=== PATIENT | male | born 1985 | race Hispanic/Latino ===

== ENCOUNTER 2018-05-31 22:33 | Emergency (ER) | payer SELFPAY ==
[2018-05-31] MEDS ORDERED: NA CHLORIDE 0.9% 1,000 ML ONE (23:57)
[2018-05-31] MEDS ORDERED: THIAMINE 200 MG/2 ML INJ ONE (23:58)
[2018-06-01] MEDS ORDERED: FOLIC ACID 5 MG/ML VIAL ONE
[2018-06-01 00:02] LABS: Absolute Lymphocytes (CBC) 2.5 K/uL (0.7-4.9); Absolute Monocytes 0.9 K/uL (0.1-1.3); Absolute Neutrophil 6.6 K/uL (1.8-8.0); Basophils % 0.7 % (0-1.3); Hematocrit 46.4 % (39.6-49.0); Lymphocytes % 24.7 % (15.3-44.8); MPV 7.4 fL (7.6-11.3); Monocytes % 8.9 % (3.3-12.3); RBC Red Blood Cell Count 5.12 M/uL (4.33-5.43)
[2018-06-01] MEDS ORDERED: MULTIVITAMINS 10 ML VIAL (INJ) IV ONE (00:03)
[2018-06-01 00:16] LABS: ALT/SGPT 41 U/L (12-78); AST/SGOT 16 U/L (15-37); Albumin 3.9 g/dL (3.4-5.0); Alkaline Phosphatase 72 U/L (45-117); BUN Blood Urea Nitrogen 11 mg/dL (7-18); Bicarbonate 28 mmol/L (21-32); Bilirubin Direct 0.2 mg/dL (0-0.2); Bilirubin Total 0.6 mg/dL (0.2-1.0); Glucose Level 117 mg/dL (74-106); Lipase 334 U/L (73-393); Potassium 3.4 mmol/L (3.5-5.1); Protein, Total 7.9 g/dL (6.4-8.2); Sodium Level 140 mmol/L (136-145)
[2018-06-01] MEDS ORDERED: POTASSIUM CL SA 10 MEQ TAB PO ONE (00:51)
--- NOTE | 2018-06-01 01:28 | EDPHYS ---
Physician Documentation [facility] Name: Phuc Pacheco Age: 33 yrs Sex: Male : 1985 Arrival Date: 05/31/2018 Time: 22:41 Bed 24 Private MD: None, None ED Physician Francesco Bhandari HPI: 05/31 23:45 This 33 yrs old Male presents to ER via Ambulatory with complaints of Headache.pkl 23:45 patient admits to drinking a lot of alcohol the past 2 days. Now complaining of pkl headache, nervous and unable to sleep.. Onset: The symptoms/episode began/occurred today. Historical: - Allergies: 22:49 No Known Allergies; lp1 - Home Meds: 22:49 None [Active]; lp1 - PMHx: 22:49 None; lp1 - PSHx: 22:49 None; lp1 - Immunization history:: Adult Immunizations up to date. - Social history:: Smoking status: Patient/guardian denies using tobacco. - Ebola Screening: : No symptoms or risks identified at this time. ROS: 23:45 Eyes: Negative for injury, pain, redness, and discharge, ENT: Negative for injury, pkl pain, and discharge, Neck: Negative for injury, pain, and swelling, Cardiovascular: Negative for chest pain, palpitations, and edema, Respiratory: Negative for shortness of breath, cough, wheezing, and pleuritic chest pain, Abdomen/GI: Negative for abdominal pain, nausea, vomiting, diarrhea, and constipation, Back: Negative for injury and pain, : Negative for injury, bleeding, discharge, and swelling, MS/Extremity: Negative for injury and deformity, Skin: Negative for injury, rash, and discoloration. 23:45 Neuro: Positive for headache. 23:45 Psych: Positive for anxiety. Exam: 23:45 Head/Face: Normocephalic, atraumatic. Eyes: Pupils equal round and reactive to light, pkl extra-ocular motions intact. Lids and lashes normal. Conjunctiva and sclera are non-icteric and not injected. Cornea within normal limits. Periorbital areas with no swelling, redness, or edema. ENT: Nares patent. No nasal discharge, no septal abnormalities noted. Tympanic membranes are normal and external auditory canals are clear. Oropharynx with no redness, swelling, or masses, exudates, or evidence of obstruction, uvula midline. Mucous membranes moist. Neck: Trachea midline, no thyromegaly or masses palpated, and no cervical lymphadenopathy. Supple, full range of motion without nuchal rigidity, or vertebral point tenderness. No Meningismus. Chest/axilla: Normal chest wall appearance and motion. Nontender with no deformity. No lesions are appreciated. Cardiovascular: Regular rate and rhythm with a normal S1 and S2. No gallops, murmurs, or rubs. Normal PMI, no JVD. No pulse deficits. Respiratory: Lungs have equal breath sounds bilaterally, clear to auscultation and percussion. No rales, rhonchi or wheezes noted. No increased work of breathing, no retractions or nasal flaring. Abdomen/GI: Soft, non-tender, with normal bowel sounds. No distension or tympany. No guarding or rebound. No evidence of tenderness throughout. Back: No spinal tenderness. No costovertebral tenderness. Full range of motion. Skin: Warm, dry with normal turgor. Normal color with no rashes, no lesions, and no evidence of cellulitis. MS/ Extremity: Pulses equal, no cyanosis. Neurovascular intact. Full, normal range of motion. Neuro: Awake and alert, GCS 15, oriented to person, place, time, and situation. Cranial nerves II-XII grossly intact. Motor strength 5/5 in all extremities. Sensory grossly intact. Cerebellar exam normal. Normal gait. 23:45 Psych: Behavior/mood is anxious, Patient has no thoughts/intents to harm self or others. Vital Signs: 22:49 BP 146 / 98; Pulse 104; Resp 16; Temp 98.5(TE); Pulse Ox 99% on R/A; Weight 81.65 kg; lp1 Height 5 ft. 6 in. (167.64 cm); Pain 11/02; 06/01 00:45 BP 139 / 107; Pulse 73; Resp 16; Pulse Ox 100% on R/A; Pain 2/10; ed1 01:40 BP 138 / 97; Pulse 91; Resp 17; Pulse Ox 100% on R/A; Pain 2/10; ed1 05/31 22:49 Body Mass Index 29.05 (81.65 kg, 167.64 cm) lp1 MDM: 05/31 23:29 Patient medically screened. pkl 06/01 01:27 Data reviewed: vital signs, nurses notes, lab test result(s). pkl 05/31 23:39 Order name: Basic Metabolic Panel; Complete Time: 00:38 pkl 05/31 23:39 Order name: CBC with Diff; Complete Time: 00:15 pkl 05/31 23:39 Order name: Creatinine for Radiology; Complete Time: 00:15 pkl 05/31 23:39 Order name: Hepatic Function; Complete Time: 00:38 pkl 05/31 23:39 Order name: Lipase; Complete Time: 00:38 pkl 05/31 23:49 Order name: ETOH Level; Complete Time: 01:27 pkl 05/31 23:39 Order name: IV Saline Lock; Complete Time: 23:53 pkl 05/31 23:39 Order name: Labs collected and sent; Complete Time: 23:53 pkl Administered Medications: 05/31 23:59 Drug: Banana Bag - (NS 0.9% 1000 ml, foLIC Acid 1 mg, Thiamine 100 mg, Multivitamin 1 tl3 amp) Route: IV; Rate: calculated rate; Site: right antecubital; 06/01 01:42 Follow up: Response: No adverse reaction; IV Status: Completed infusion; IV Intake: ed1 1000ml 00:46 Drug: K-Dur 20 mEq Route: PO; ed1 01:42 Follow up: Response: No adverse reaction ed1 Disposition: 06/01/18 01:28 Discharged to Home. Impression: Anxiety disorder. Alcohol abuse. - Condition is Stable. - Prescriptions for Ativan 1 mg Oral Tablet - take 1 tablet by ORAL route 2 times per day As needed; 10 tablet. - Medication Reconciliation Form, Thank You Letter, Antibiotic Education, Prescription Opioid Use, Work release form form. - Follow up: Private Physician; When: 2 - 3 days; Reason: Re-evaluation by your physician. - Problem is new. - Symptoms have improved. Signatures: Dispatcher [employer] EDMS Francesco Bhandari MD MD pkHarini Looney, HORSE RACING ANALYST HORSE RACING ANALYST ed1 Belen Phan, RN RN lp1 Estrella Graves, RN RN tl3 Corrections: (The following items were deleted from the chart) 01:24 05/31 23:50 URINE DRUG SCREEN+CHEM UR.LAB.BRZ ordered. EDMS EDMS 01/07 01:42 01:28 06/01/2018 01:28 Discharged to Home. Impression: Anxiety disorder. Alcohol abuse. ed1 Condition is Stable. Forms are Medication Reconciliation Form, Thank You Letter, Antibiotic Education, Prescription Opioid Use. Follow up: Private Physician; When: 2 - 3 days; Reason: Re-evaluation by your physician. Problem is new. Symptoms have improved. pkl
--- NOTE | 2018-06-01 01:28 | ER ---
Nurse's Notes [facility] Name: Phuc Pacheco Age: 33 yrs Sex: Male : 1985 Arrival Date: 05/31/2018 Time: 22:41 Bed 24 Private MD: None, None Diagnosis: Anxiety disorder. Alcohol abuse Presentation: 05/31 22:46 Presenting complaint: Child states: He has been feeling very nervous, shaky, headache; lp1 States going to [place] and drank a lot of alcohol, drove back from [place] and arrived today but has been tired so he drank 2 coffees and 4 [employer] drinks in the last 2 days. Transition of care: patient was not received from another setting of care. Onset of symptoms was May 31, 2018. Risk Assessment: Do you want to hurt yourself or someone else? Patient reports no desire to harm self or others. Initial Sepsis Screen: Does the patient meet any 2 criteria? No. Patient's initial sepsis screen is negative. Does the patient have a suspected source of infection? No. Patient's initial sepsis screen is negative. Care prior to arrival: None. 22:46 Method Of Arrival: Ambulatory lp1 22:46 Acuity: JESSE 3 lp1 Historical: - Allergies: 22:49 No Known Allergies; lp1 - Home Meds: 22:49 None [Active]; lp1 - PMHx: 22:49 None; lp1 - PSHx: 22:49 None; lp1 - Immunization history:: Adult Immunizations up to date. - Social history:: Smoking status: Patient/guardian denies using tobacco. - Ebola Screening: : No symptoms or risks identified at this time. Screenin:49 Abuse screen: Denies threats or abuse. Denies injuries from another. Nutritional lp1 screening: No deficits noted. Tuberculosis screening: No symptoms or risk factors identified. Fall Risk None identified. Assessment: 23:14 General: Appears in no apparent distress. Behavior is calm, cooperative. Pain: ed1 Complains of pain in head Pain does not radiate. Pain currently is 6 out of 10 on a pain scale. Quality of pain is described as aching, Pain began today. Neuro: Level of Consciousness is awake, alert, obeys commands, Oriented to person, place, time, situation, Reports headache in entire parietal area, frontal area. Cardiovascular: Denies chest pain, Heart tones S1 S2 present Capillary refill < 3 seconds in bilateral fingers Clubbing of nail beds is absent JVD is absent Patient's skin is warm and dry. Respiratory: Airway is patent Respiratory effort is even, unlabored, Respiratory pattern is regular, symmetrical, Breath sounds are clear bilaterally. Denies cough, shortness of breath. GI: Abdomen is non-distended, Bowel sounds present X 4 quads. Abd is soft and non tender X 4 quads. Patient currently denies diarrhea, nausea, vomiting. : No signs and/or symptoms were reported regarding the genitourinary system. EENT: No signs and/or symptoms were reported regarding the EENT system. Derm: Skin is intact, is healthy with good turgor, Skin is dry, Skin is normal, Skin temperature is warm. Musculoskeletal: Circulation, motion, and sensation intact. Range of motion: intact in all extremities. 06/01 00:45 Reassessment: Patient appears in no apparent distress at this time. Patient and/or ed1 family updated on plan of care and expected duration. Pain level reassessed. Patient is alert, oriented x 3, equal unlabored respirations, skin warm/dry/pink. Patient states feeling better. Patient states symptoms have improved. 01:40 Reassessment: Patient appears in no apparent distress at this time. Patient and/or ed1 family updated on plan of care and expected duration. Pain level reassessed. Patient is alert, oriented x 3, equal unlabored respirations, skin warm/dry/pink. Patient states feeling better. Patient states symptoms have improved. Vital Signs: 05/31 22:49 BP 146 / 98; Pulse 104; Resp 16; Temp 98.5(TE); Pulse Ox 99% on R/A; Weight 81.65 kg; lp1 Height 5 ft. 6 in. (167.64 cm); Pain 6/; 06/01 00:45 BP 139 / 107; Pulse 73; Resp 16; Pulse Ox 100% on R/A; Pain 2/10; ed1 01:40 BP 138 / 97; Pulse 91; Resp 17; Pulse Ox 100% on R/A; Pain 2/10; ed1 05/31 22:49 Body Mass Index 29.05 (81.65 kg, 167.64 cm) lp1 ED Course: 05/31 22:41 Patient arrived in ED. mr 22:41 None, None is Private Physician. mr 22:48 Triage completed. lp1 22:49 Arm band placed on left wrist. lp1 23:13 Harini Sahu LVN is Primary Nurse. ed1 23:14 Patient has correct armband on for positive identification. Bed in low position. Call ed1 light in reach. Adult w/ patient. 23:29 Francesco Bhandari MD is Attending Physician. pkl 23:54 Inserted saline lock: 20 gauge in right antecubital area, using aseptic technique. pa Blood collected. 01 01:40 No provider procedures requiring assistance completed. IV discontinued, intact, ed1 bleeding controlled, No redness/swelling at site. Pressure dressing applied. Administered Medications: 05/31 23:59 Drug: Banana Bag - (NS 0.9% 1000 ml, foLIC Acid 1 mg, Thiamine 100 mg, Multivitamin 1 tl3 amp) Route: IV; Rate: calculated rate; Site: right antecubital; 06/01 01:42 Follow up: Response: No adverse reaction; IV Status: Completed infusion; IV Intake: ed1 1000ml 00:46 Drug: K-Dur 20 mEq Route: PO; ed1 01:42 Follow up: Response: No adverse reaction ed1 Intake: 01:42 IV: 1000ml; Total: 1000ml. ed1 Outcome: 01:28 Discharge ordered by . pkl 01:40 Discharged to home ambulatory, with family. ed1 01:40 Condition: good 01:40 Discharge instructions given to patient, family, Instructed on discharge instructions, follow up and referral plans. medication usage, Demonstrated understanding of instructions, follow-up care, medications, Prescriptions given X 1. 01:42 Patient left the ED. ed1 Signatures: Francesco Bhandari MD MD pkl Rivera, Francie SahuHarini LVN TURF MANAGER ed1 Belen Phan, RN RN lp1 Laura Garcia mt, Tammy, RN RN tl3
== END 2018-06-01 01:42 | disposition home or self-care (01) ==
LOC: ER 22:33
DX: F41.9 Anxiety disorder, unspecified (principal); F10.10 Alcohol abuse, uncomplicated
CPT/HCPCS: 36415; 80048; 80076; 80320; 83690; 85025; 96365; 96366; 99284; J3411; J7030